=== PATIENT | male | born 1950 | race Caucasian/White ===

== ENCOUNTER 2019-03-27 12:20 | Inpatient (IN) | payer MEDICARE, OTHER ==
[~2019-03-27] VITALS: Ht 170.2 cm; Wt 63.6 kg
--- NOTE | 2019-03-27 13:12 | NUR ---
EMS STATES HE WAS EATING LUNCH RIGHT BEFORE HE WAS TAKEN HERE. Addendum: 03/27/19 at 1815 by LILY pt recently had a right hip fracture.
[2019-03-27 13:39] LABS: BASOPHILS # (AUTO) 0.1 X10'3 (0-0.2); BASOPHILS % (AUTO) 0.6 % (0-1); EOSINOPHILS % (AUTO) 0 % (0-6); HEMATOCRIT 39.8 % (42.0-52.0); HEMOGLOBIN 13.7 g/dl (14.0-17.9); LYMPHOCYTES # (AUTO) 0.2 X10'3 (1.1-4.8); LYMPHOCYTES % (AUTO) 1.3 % (21-51); MEAN CORPUSCULAR HEMOGLOBIN 33.3 PG (27.0-31.0); MEAN CORPUSCULAR HGB CONC 34.5 g/dL (33.0-36.5); MEAN CORPUSCULAR VOLUME 96.4 FL (78-98); MEAN PLATELET VOLUME 6.9 FL (7.4-10.4); MONOCYTES # (AUTO) 0.4 X10'3 (0-0.9); MONOCYTES % (AUTO) 2.8 % (2-12); NEUTROPHILS # (AUTO) 14.8 X10'3 (1.8-7.7); NEUTROPHILS % (AUTO) 95.3 % (42-75); PLATELET COUNT 120 X10'3 (140-440); RED BLOOD COUNT 4.13 X10'6 (4.70-6.10); RED CELL DISTRIBUTION WIDTH 14.2 % (11.5-14.5); WHITE BLOOD COUNT 15.6 X10'3 (4.5-11.0)
[2019-03-27] MEDS ORDERED: normal saline 1000ml 1,000 ML IV ONE (13:50)
[2019-03-27 13:52] LABS: CLARITY,URINE SLIGHTLY CLOUDY (Clear); COLOR,URINE YELLOW (Yellow); GLUCOSE, URINE 500 mg/dl (Neg); KETONES,URINE NEGATIVE (Neg); LEUKOCYTE ESTERASE ,URINE NEGATIVE (Neg); NITRITES, URINE NEGATIVE (Neg); OCCULT BLOOD,URINE NEGATIVE (Neg); PH,URINE 6.5 (4.8-8.0); PROTEIN,URINE NEGATIVE (Neg); UROBILINOGEN,URINE 0.2 E.U/dL (0.2-1.0)
[2019-03-27 13:54] LABS: ALANINE AMINOTRANSFERASE 51 U/L (12-78); ALBUMIN 2.3 G/DL (3.4-5.0); ALKALINE PHOSPHATASE 106 IU/L (46-116); ANION GAP 7 (8-16); ASPARTATE AMINO TRANSFERASE 21 U/L (10-37); BILIRUBIN,TOTAL 0.9 MG/DL (0.1-1.0); BLOOD UREA NITROGEN 19 MG/DL (7-18); BUN/CREATININE RATIO 24.7 (5.4-32.0); CALCIUM 8.8 MG/DL (8.5-10.1); CHLORIDE 107 MMOL/L (99-107); CREATININE 0.77 MG/DL (0.60-1.10); GLUCOSE 216 MG/DL (70-104); POTASSIUM 3.1 MMOL/L (3.5-5.1); SODIUM 144 MMOL/L (135-145); TOTAL CARBON DIOXIDE 30.3 MMOL/L (24-32); TOTAL PROTEIN 4.7 G/DL (6.4-8.2); eGFR > 90 ML/MIN
[2019-03-27 13:58] LABS: INR 1.1 INR
[2019-03-27 14:01] LABS: UA COLLECTION TYPE STRAIGHT CATH
[2019-03-27 14:02] LABS: URINE AMPHETAMINE SCREEN NEGATIVE (Neg); URINE BARBITUATE SCREEN NEGATIVE (Neg); URINE BENZODIAZEPINES SCREEN NEGATIVE (Neg); URINE CANNABINOID SCREEN NEGATIVE (Neg); URINE COCAINE SCREEN NEGATIVE (Neg); URINE METHADONE SCREEN NEGATIVE (Neg); URINE OPIATE SCREEN NEGATIVE (Neg); URINE PHENCYCLIDINE SCREEN NEGATIVE (Neg)
[2019-03-27 14:03] LABS: MAGNESIUM 2.1 MG/DL (1.5-2.4)
[2019-03-27 14:04] LABS: BACTERIA,URINE FEW /HPF (Neg); HYALINE CASTS 0-3 /LPF (NEGATIVE); MUCUS STRANDS FEW /LPF (Neg); SQUAMOUS EPITHELIAL CELL,UR FEW /LPF (FEW)
[2019-03-27 14:05] LABS: RBC,URINE 0-2 /HPF (0-2); WBC,URINE 0-4 /HPF (0-4)
[2019-03-27 14:06] LABS: AMORPHOUS PHOSPHATES 2+
--- NOTE | 2019-03-27 14:32 | NUR ---
PT ROLLED ON HIS LEFT SIDE.
--- NOTE | 2019-03-27 14:53 | NUR ---
nnamdi charlton (pt's son) : [phone]
--- NOTE | 2019-03-27 14:58 | NUR ---
records being requested from [facility]. pt's son is here and talking with the pt
--- NOTE | 2019-03-27 15:31 | NUR ---
CALLED AND TALKED WITH TAHIR FROM [facility]. NURSE STATES THE PT IS NORMALLY ALERT AND ORIENTED X3. PT STARTED TO TRY AND GET OUT OF THE BED ON HIS OWN. THEN RAMING THE BEDSIDE TABLE INTO THE WALL. HIT THE BUTTON TO CALL HIS FAMILY ON HIS CELL PHONE BUT THEN HUNG UP AND DID THIS OVER AND OVER. THIS IS NOT HIS NORM BUT NURSE STATES THIS HAPPENED BEFORE A FEW MONTHS AGO BUT HAS BEEN FINE SINCE. THE PT HAS C-DIFF AND IS ON A LIQUID VANCOMYCIN WHICH WAS STARTED ON THE 03-21-19 AND SUPPOSED TO RUN FOR TWO WEEKS. NORMALLY PT IS COOPERATIVE AND "NOT ALWAYS COMPLETELY THERE BUT HE IS COOPERATIVE." NURSE DENIES THE PT BEING VIOLENT.
[2019-03-27] MEDS ORDERED: LOSA100T57 PO (15:36)
[2019-03-27] MEDS ORDERED: ASPI-611 PO (15:36)
[2019-03-27] MEDS ORDERED: MAGN64TA10 PO (15:36)
[2019-03-27] MEDS ORDERED: VANC250C12 PO (15:36)
[2019-03-27] MEDS ORDERED: ATOR20TA PO (15:36)
[2019-03-27] MEDS ORDERED: POTA-82 PO (15:36)
[2019-03-27] MEDS ORDERED: THI100I PO (15:36)
[2019-03-27] MEDS ORDERED: ZOL50T PO (15:36)
[2019-03-27] MEDS ORDERED: TERA1CAP4 PO (15:36)
[2019-03-27] MEDS ORDERED: LOPE2CAP PO (15:36)
[2019-03-27] MEDS ORDERED: LACTC PO (15:36)
[2019-03-27] MEDS ORDERED: BUPR-94 PO (15:36)
[2019-03-27] MEDS ORDERED: HYDR-4383 PO (15:36)
[2019-03-27] MEDS ORDERED: mag hydrox/Alum hydrox/simeth 30ml oral suspension PO PRN (16:15)
[2019-03-27] MEDS ORDERED: ondansetron/PF 4mg/2ml inj IV PRN (16:15)
[2019-03-27] MEDS ORDERED: magnesium hydroxide 30ml (MOM) UD suspension PO PRN (16:15)
[2019-03-27] MEDS ORDERED: acetaminophen 325mg tablet PO PRN (16:15)
[2019-03-27] MEDS: normal saline 1000ml 1,000 ML IV SCH (16:32)
--- NOTE | 2019-03-27 16:45 | NUR ---
PT CLEANED UP AND ROTATED ON HIS RIGHT SIDE. PT HAD VERY LOOSE DIARRHEA
[2019-03-27] MEDS ORDERED: HYDROcodone/acetaminophen 5mg/325mg tablet PO PRN (17:20)
--- NOTE | 2019-03-27 17:35 | NUR ---
pt's son is wondering about how to get a POA completed. talked with supriya Camarena and she states she will put an order in for [employer] school [employer] tutor to work on helping get this done tomorrow.
--- NOTE | 2019-03-27 18:19 | NUR ---
attempted to call report to the floor but nurse is getting report for shift change.
[2019-03-27 19:05] VITALS: BP 150/85
--- NOTE | 2019-03-27 19:05 | NUR ---
PATIENT ADMITTED TO ROOM 341 FROM ER FOR C-DIFF AND DEHYDRATION. PLACED COMFORTABLE IN BED. VITAL SIGNS TAKEN AND RECORDED.
[2019-03-27] MEDS: vancomycin 250MG/10ML UD oral solution 10ML BOTTLE PO SCH (20:46)
[2019-03-27] MEDS: buPROPion 75mg tablet PO SCH (20:47)
[2019-03-27] MEDS: Terazosin 1mg capsule PO SCH (20:47)
[2019-03-27] MEDS: potassium Cl 20 mEq SR tablet PO SCH (20:47)
[2019-03-27] MEDS: heparin, porcine 5000 units/ml vial SQ SCH (20:48)
[2019-03-27] MEDS ORDERED: non-formulary drug (Potassium Chloride 1 TAB) PO SCH (21:00)
[2019-03-28] VITALS: BP 108/72
[2019-03-28] MEDS: normal saline 1000ml 1,000 ML IV SCH ×3 (01:25→22:15)
[2019-03-28] MEDS: vancomycin 250MG/10ML UD oral solution 10ML BOTTLE PO SCH ×4 (02:39→20:23)
[2019-03-28 04:38] LABS: BASOPHILS % (AUTO) 0.2 % (0-1); EOSINOPHILS % (AUTO) 0 % (0-6); HEMATOCRIT 32.2 % (42.0-52.0); HEMOGLOBIN 11.1 g/dl (14.0-17.9); LYMPHOCYTES # (AUTO) 0.2 X10'3 (1.1-4.8); LYMPHOCYTES % (AUTO) 1.4 % (21-51); MEAN CORPUSCULAR HEMOGLOBIN 33.1 PG (27.0-31.0); MEAN CORPUSCULAR HGB CONC 34.4 g/dL (33.0-36.5); MEAN CORPUSCULAR VOLUME 96.4 FL (78-98); MEAN PLATELET VOLUME 6.8 FL (7.4-10.4); MONOCYTES # (AUTO) 0.3 X10'3 (0-0.9); MONOCYTES % (AUTO) 2.5 % (2-12); NEUTROPHILS # (AUTO) 11.5 X10'3 (1.8-7.7); NEUTROPHILS % (AUTO) 95.9 % (42-75); PLATELET COUNT 96 X10'3 (140-440); RED BLOOD COUNT 3.34 X10'6 (4.70-6.10); RED CELL DISTRIBUTION WIDTH 13.9 % (11.5-14.5)
[2019-03-28 04:41] LABS: ANION GAP 2 (8-16); BLOOD UREA NITROGEN 16 MG/DL (7-18); BUN/CREATININE RATIO 23.9 (5.4-32.0); CALCIUM 8.2 MG/DL (8.5-10.1); CHLORIDE 112 MMOL/L (99-107); CREATININE 0.67 MG/DL (0.60-1.10); GLUCOSE 197 MG/DL (70-104); SODIUM 145 MMOL/L (135-145); TOTAL CARBON DIOXIDE 30.6 MMOL/L (24-32); eGFR > 90 ML/MIN
[2019-03-28 04:47] LABS: POTASSIUM 2.6 MMOL/L (3.5-5.1)
[2019-03-28] MEDS ORDERED: magnesium Cl slow-release 64mg tablet PO PRN (05:10)
[2019-03-28] MEDS ORDERED: potassium Cl 40MEQ/NS 500ml 500 ML IV PRN ×2 (05:10)
[2019-03-28] MEDS ORDERED: magnesium 4gm in 100ml NS 100 ML IV PRN (05:10)
--- NOTE | 2019-03-28 05:14 | NUR ---
CALLED DR. CLAYTON AND WAS INFORMED OF CRITICAL POTASSIUM 2.6 WITH ORDER FOR POTASSIUM AND MAGNESIUM REPLACEMENT PROTOCOL..
[2019-03-28] MEDS: potassium Cl 20 mEq SR tablet PO PRN ×2 (05:52→20:46)
--- NOTE | 2019-03-28 06:30 | NUR ---
Problems reprioritized. Patient report given, questions answered & plan of care reviewed with DEEPA BATES.
--- NOTE | 2019-03-28 06:30 | NUR ---
Patient in room [facility] 341. I have received report from JOHN LOPEZ RN and had the opportunity to ask questions and assume patient care.
[2019-03-28] MEDS: heparin, porcine 5000 units/ml vial SQ SCH ×2 (06:38→20:24)
[2019-03-28 07:00] VITALS: BP 121/78
[2019-03-28] MEDS: magnesium Cl slow-release 64mg tablet PO SCH (07:43)
[2019-03-28] MEDS: potassium Cl 20 mEq SR tablet PO SCH ×3 (07:43→20:24)
[2019-03-28] MEDS: losartan 50mg tablet PO SCH (07:43)
[2019-03-28] MEDS: lactobacillus rhamnosus 10,000 MMU CELLS/CAPSULE PO SCH (07:43)
[2019-03-28] MEDS: atorvastatin 20mg tablet PO SCH (07:43)
[2019-03-28] MEDS: sertraline 50mg tablet PO SCH (07:43)
[2019-03-28] MEDS: buPROPion 75mg tablet PO SCH ×2 (07:43→20:24)
[2019-03-28] MEDS: aspirin 81mg tablet.DR PO SCH (07:43)
[2019-03-28] MEDS ORDERED: non-formulary drug (Aspirin (Aspir 81) 1 TAB) PO SCH (08:00)
[2019-03-28] MEDS ORDERED: non-formulary drug (Losartan Potassium 1 TAB) PO SCH (08:00)
[2019-03-28] MEDS ORDERED: non-formulary drug (Atorvastatin Calcium (Lipitor) 1 TAB) PO SCH (08:00)
[2019-03-28] MEDS ORDERED: buproprion 150mg XL (24-hour) tablet PO SCH (08:00)
[2019-03-28] MEDS ORDERED: non-formulary drug (Lactobacillus Acidophilus (ACIDOPHILUS capsule) 1 CAP) PO SCH (08:00)
[2019-03-28 08:36] LABS: TOTAL CELLS COUNTED 100
[2019-03-28 08:38] LABS: PLATELET ESTIMATE DECREASED
[2019-03-28 08:39] LABS: ANISOCYTOSIS 1+; POIKILOCYTOSIS FEW
[2019-03-28 11:00] VITALS: BP 140/89
--- NOTE | 2019-03-28 17:57 | NUR ---
Problems reprioritized. Patient report given, questions answered & plan of care reviewed with ESTELA BATES.
[2019-03-28 18:00] VITALS: BP 138/94
--- NOTE | 2019-03-28 18:30 | NUR ---
Patient in room [facility] 341. I have received report from Hawa BATES and had the opportunity to ask questions and assume patient care.
--- NOTE | 2019-03-28 20:15 | NUR ---
[place]iki HILLS notified of platelet level of 96. Will give heparin and recheck platelet in morning.
[2019-03-28] MEDS: Terazosin 1mg capsule PO SCH (20:24)
[2019-03-29] VITALS: BP 122/80
[2019-03-29] MEDS: potassium Cl 20 mEq SR tablet PO PRN ×3 (01:09→12:42)
[2019-03-29] MEDS: normal saline 1000ml 1,000 ML IV SCH ×2 (01:09→14:11)
[2019-03-29] MEDS: vancomycin 250MG/10ML UD oral solution 10ML BOTTLE PO SCH ×3 (01:09→14:11)
[2019-03-29 04:51] LABS: BASOPHILS % (AUTO) 0.1 % (0-1); EOSINOPHILS % (AUTO) 0 % (0-6); HEMOGLOBIN 11.3 g/dl (14.0-17.9); LYMPHOCYTES # (AUTO) 0.1 X10'3 (1.1-4.8); LYMPHOCYTES % (AUTO) 1.1 % (21-51); MEAN CORPUSCULAR HEMOGLOBIN 33.6 PG (27.0-31.0); MEAN CORPUSCULAR HGB CONC 34.4 g/dL (33.0-36.5); MEAN CORPUSCULAR VOLUME 97.6 FL (78-98); MONOCYTES # (AUTO) 0.4 X10'3 (0-0.9); MONOCYTES % (AUTO) 3.3 % (2-12); NEUTROPHILS # (AUTO) 10.1 X10'3 (1.8-7.7); NEUTROPHILS % (AUTO) 95.5 % (42-75); PLATELET COUNT 88 X10'3 (140-440); RED BLOOD COUNT 3.38 X10'6 (4.70-6.10); RED CELL DISTRIBUTION WIDTH 14.3 % (11.5-14.5); WHITE BLOOD COUNT 10.5 X10'3 (4.5-11.0)
[2019-03-29 05:07] LABS: ANION GAP 2 (8-16); BLOOD UREA NITROGEN 13 MG/DL (7-18); BUN/CREATININE RATIO 19.7 (5.4-32.0); CALCIUM 8.1 MG/DL (8.5-10.1); CHLORIDE 114 MMOL/L (99-107); CREATININE 0.66 MG/DL (0.60-1.10); GLUCOSE 173 MG/DL (70-104); MAGNESIUM 1.9 MG/DL (1.5-2.4); POTASSIUM 3.3 MMOL/L (3.5-5.1); SODIUM 146 MMOL/L (135-145); TOTAL CARBON DIOXIDE 30.3 MMOL/L (24-32); eGFR > 90 ML/MIN
[2019-03-29 05:16] LABS: HEMOGLOBIN A1C 6.2 % (4.5-6.2)
--- NOTE | 2019-03-29 06:26 | NUR ---
Patient in room [facility] 341. I have received report from JANA Munguia and had the opportunity to ask questions and assume patient care.
--- NOTE | 2019-03-29 06:33 | NUR ---
Problems reprioritized. Patient report given, questions answered & plan of care reviewed with Ania RN.
[2019-03-29 07:04] VITALS: BP 145/95
[2019-03-29] MEDS: aspirin 81mg tablet.DR PO SCH (07:50)
[2019-03-29] MEDS: magnesium Cl slow-release 64mg tablet PO SCH (07:50)
[2019-03-29] MEDS: potassium Cl 20 mEq SR tablet PO SCH ×2 (07:50→12:42)
[2019-03-29] MEDS: lactobacillus rhamnosus 10,000 MMU CELLS/CAPSULE PO SCH (07:51)
[2019-03-29] MEDS: losartan 50mg tablet PO SCH (07:51)
[2019-03-29] MEDS: buPROPion 75mg tablet PO SCH (07:51)
[2019-03-29] MEDS: atorvastatin 20mg tablet PO SCH (07:51)
[2019-03-29] MEDS: sertraline 50mg tablet PO SCH (07:51)
[2019-03-29] MEDS: heparin, porcine 5000 units/ml vial SQ SCH (07:53)
[2019-03-29 11:00] VITALS: BP 152/90
== END 2019-03-29 16:11 | DRG 640 ==
LOC: ER 12:20 → SUR 3N 19:01 → CMPBEDREQ 20:00
PROVIDERS: ADMIT Family Medicine; ATTEND Family Medicine
DX: E86.0 Dehydration (principal); G93.41 Metabolic encephalopathy; A04.72 Enterocolitis due to Clostridium difficile, not specified as recurrent; F03.90 Unspecified dementia, unspecified severity, without behavioral disturbance, psychotic disturbance, mood disturbance, and anxiety; E87.6 Hypokalemia; I10 Essential (primary) hypertension; E78.5 Hyperlipidemia, unspecified; F32.9 Major depressive disorder, single episode, unspecified
CPT/HCPCS: 36415; 70450; 71045; 80048; 80053; 80305; 81001; 82140; 82948; 83036; 83735; 84100; 84132; 84443; 85025; 85610; 87070; 93005; 96360; 97110; 97116; 97161; 97530; 99285; G0378; J1644; J7030